=== PATIENT | male | born 1935 | race Caucasian/White ===

== ENCOUNTER 2017-02-12 06:17 | Inpatient (IN) ==
[2017-02-12] MEDS ORDERED: ASPIRIN PO STA (06:22)
[2017-02-12] MEDS ORDERED: ZOFRAN IV ONE (06:46)
[2017-02-12] MEDS ORDERED: CATAPRES ONE (06:46)
[2017-02-12] MEDS ORDERED: CATAPRES PO ONE (06:46)
[2017-02-12] MEDS ORDERED: MORPHINE IV ONE (06:47)
[2017-02-12] MEDS: NITROGLYCERIN SL ONE ×2 (06:50→06:55)
[2017-02-12 06:52] LABS: MANUAL DIFF NEEDED? NO
[2017-02-12 06:56] LABS: BASO% 0.6 % (0.0-0.8); EOS# 0.22 X1000 (0.0-0.7); EOS% 2.7 % (0.0-10.0); HEMATOCRIT 41.7 % (42.0-52.0); HEMOGLOBIN 13.4 g/dL (14.0-18.0); LYMPH# 1.22 X1000 (1.2-3.4); LYMPH% 14.8 % (20.5-51.1); MCH 28.9 PG (27-31); MCHC 32.1 g/dL (33-37); MCV 90.1 FL (81-99); MONO# 0.68 X1000 (0.11-0.59); MONO% 8.2 % (1.7-9.3); MPV 10.3 FL (7.4-10.4); NEUT% 73.7 % (42.2-75.2); PLT 226 X1000 (130-400); RBC 4.63 XMIL (4.7-6.1)
--- NOTE | 2017-02-12 07:06 | PROVIDER DOCUMENTATION ---
HPI-Chest Pain - General Chief Complaint: Chest Pain Stated Complaint: CP Time Seen by Provider: 02/12/17 06:37 Source: patient, family Allergies/Adverse Reactions: Patient Allergies Allergy/AdvReac Type Severity Reaction Status Date / Time Sulfa (Sulfonamide AdvReac Mild NAUSEA Verified 10/07/15 15:53 Antibiotics) [Sulfa(Sulfonamide Antibiotics)] codeine [Codeine] AdvReac NAUSEA Verified 10/07/15 15:53 Home Medications: Home Medication List Medication Instructions Recorded Confirmed Last Taken Type ROSUVAstatin [Crestor] 5 mg PO HS #0 tablet 10/09/15 Unknown Rx Apixaban [Eliquis] 2.5 mg PO DAILY 02/12/17 02/12/17 02/11/17 07:00 History Pantoprazole [Protonix] 40 mg PO DAILY@0700 02/12/17 02/12/17 02/11/17 07:00 History - History of Present Illness-CP Nature of Presenting Problem: Elderly gentleman with a history of CAD (stent placement 1 year ago and pacemaker), presents complaining of substernal chest pain and pressure starting at 1am. He didn't want to wake his son up, but pain got so bad, he had to come according to the patient. He denied any nausea, vomiting, diarrhea, or dyspnea. Location: reports: substernal Chest Pain Radiation: reports: no radiation Quality of Pain: reports: aching, pressure Severity in ED: moderate Onset/Duration: 4-6 hours ago Timing: still present Context/Activities at Onset: reports: light activity Modifying Factors: improves with: immobilization, lying down Associated Symptoms: reports: weakness. denies: diaphoresis, dizziness, fatigue , nausea, shortness of breath, syncope Nitro Today/Relief: provided by ED Aspirin Treatment Today: provided by ED Prior Chest Pain/Cardiac Workup: reports: heart attack Similar Symptoms Previously?: Yes Recently Seen Here or By Another Healthcare Provider: No Review of Systems - Adult - REVIEW OF SYSTEMS - ADULT Constitutional: reports: no symptoms reported Eyes: reports: no symptoms reported Ears, Nose, Mouth & Throat: reports: no symptoms reported Cardiovascular: reports: see HPI, chest pain. denies: orthopnea, palpitations, syncope Respiratory: reports: no symptoms reported Gastrointestinal: reports: no symptoms reported Genitourinary: reports: no symptoms reported Musculoskeletal: reports: no symptoms reported Integumentary: reports: no symptoms reported Neurological: reports: no symptoms reported Psychiatric: reports: no symptoms reported Endocrine: reports: no symptoms reported Hematologic/Lymphatic: reports: no symptoms reported Allergic/Immunologic: reports: no symptoms reported All Other Systems: Reviewed and Negative Past History - Adult - PAST MEDICAL HISTORY-ADULT Review of Records: reports: Old Records Reviewed, Nursing Assessment Review, Medications Reviewed, Social history reviewed & non-contributory. Cardiovascular: reports: HTN, pacemaker Gastrointestinal: reports: GERD, GI bleed - PRIOR SURGERIES/PROCEDURES Surgical/Procedure History: reports: appendectomy, back/neck - IMMUNIZATION STATUS Childhood Immunizations: See Nurse Assessment Flu Vaccine: See Nurse Assessment Physical Exam-General - PHYSICAL EXAM-ADULT Initial Vital Signs Reviewed: Yes - CONSTITUTIONAL General Appearance: appears well - EYES Eyes: PERRL/EOMI, pink conjunctivae - HEAD, EARS, NOSE, MOUTH & THROAT HENMT: normocephalic/atraumatic - NECK Neck: non-tender - RESPIRATORY Respiratory: chest non-tender, lungs clear, normal breath sounds - CARDIOVASCULAR Cardiovascular: normal peripheral pulses, regular rate, rhythm - GASTROINTESTINAL (ABDOMEN) Abdominal Exam: normal bowel sounds, non tender - LYMPHATIC Lymphatic: no adenopathy - MUSCULOSKELETAL Back Exam: normal inspection, no CVA tenderness Extremity: normal range of motion, non-tender - SKIN Integumentary: normal color, normal turgor - NEUROLOGIC Neurologic: research program internship II-XII nml as tested, grossly normal - PSYCHIATRIC Psych/Mental Status: normal mood/affect, normal thought content Progress - PLAN OF CARE/RESULTS Progress/Plan/Lab Results: Vital Signs - 8 hr 02/12/17 06:38 02/12/17 07:38 02/12/17 09:17 Temperature 97.8 F Pulse Rate 72 70 Respiratory Rate 28 H 14 Blood Pressure 225/114 163/93 O2 Sat by Pulse Oximetry 100 97 02/12/17 09:19 Temperature Pulse Rate 70 Respiratory Rate 15 Blood Pressure 171/97 O2 Sat by Pulse Oximetry 98 Laboratory Results - last 24 hr 02/12/17 02/12/17 02/12/17 06:40 06:40 06:40 WBC 8.26 RBC 4.63 L Hgb 13.4 L Hct 41.7 L MCV 90.1 MCH 28.9 MCHC 32.1 L RDW Std Deviation 15.5 H Plt Count 226 MPV 10.3 Immature Gran % (Auto) 0.0 Neut % (Auto) 73.7 Lymph % (Auto) 14.8 L Henry % (Auto) 8.2 Eos % (Auto) 2.7 Baso % (Auto) 0.6 Immature Gran # (Auto) 0.00 Neut # (Auto) 6.09 Lymph # (Auto) 1.22 Henry # (Auto) 0.68 H Eos # (Auto) 0.22 Baso # (Auto) 0.05 PT INR PTT (Actin FS) Sodium 141 Potassium 5.1 Chloride 103 Carbon Dioxide 22 L Anion Gap 16 BUN 26 H Creatinine 2.9 H Estimated GFR/1.73 m2 21 BUN/Creatinine Ratio 9 Glucose 96 Calculated Osmolality 286 Calcium 9.4 Magnesium 2.2 Total Bilirubin 0.73 AST 10 ALT 7 L Alkaline Phosphatase 72 Creatine Kinase 37 Troponin T [id number] Pept 6837 H Total Protein 6.3 Albumin 4.0 Globulin 2.3 Albumin/Globulin Ratio 1.7 02/12/17 02/12/17 02/12/17 06:40 06:40 08:15 WBC RBC Hgb Hct MCV MCH MCHC RDW Std Deviation Plt Count MPV Immature Gran % (Auto) Neut % (Auto) Lymph % (Auto) Henry % (Auto) Eos % (Auto) Baso % (Auto) Immature Gran # (Auto) Neut # (Auto) Lymph # (Auto) Henry # (Auto) Eos # (Auto) Baso # (Auto) PT 10.1 INR 0.96 PTT (Actin FS) 27.1 Sodium Potassium Chloride Carbon Dioxide Anion Gap BUN Creatinine Estimated GFR/1.73 m2 BUN/Creatinine Ratio Glucose Calculated Osmolality Calcium Magnesium Total Bilirubin AST ALT Alkaline Phosphatase Creatine Kinase Troponin T < 0.010 < 0.010 [id number] Pept Total Protein Albumin Globulin Albumin/Globulin Ratio Orders Category Date Time Status Cardiac Monitoring DIRECTED Care 02/12/17 06:22 Active Oxygen Therapy- ED Nursing DIRECTED Care 02/12/17 06:22 Active Saline Loc NOW Care 02/12/17 06:22 Active CHEST-1 VIEW [RAD] Stat Exams 02/12/17 06:22 Completed CBC WITH ELECTRONIC DIFF [HEME] Stat Lab 02/12/17 06:40 Completed CK PROFILE [SP CHEM] Stat Lab 02/12/17 06:40 Completed COMPREHENSIVE METABOLIC PANEL [CHEM] Stat Lab 02/12/17 06:40 Completed MAGNESIUM [CHEM] Stat Lab 02/12/17 06:40 Completed PRO B-NATRIURETIC PEPTIDE Stat Lab 02/12/17 06:40 Completed PROTIME WITH INR [COAG] Stat Lab 02/12/17 06:40 Completed PTT [COAG] Stat Lab 02/12/17 06:40 Completed TROPONIN T Stat Lab 02/12/17 06:40 Completed TROPONIN T Stat Lab 02/12/17 08:15 Completed Aspirin Med 02/12/17 06:22 Discontinued 325 mg PO STAT STA Clonidine [Catapres] Med 02/12/17 06:46 Discontinued 0.1 mg .ROUTE .STK-MED ONE Clonidine [Catapres] Med 02/12/17 06:46 Discontinued 0.1 mg PO NOW ONE Furosemide [Lasix] Med 02/12/17 07:54 Discontinued 60 mg IV NOW ONE Lido/Villalobos Alk/Al&mg Hydrox [G.i. Cocktail] Med 02/12/17 08:00 Discontinued 30 ml PO NOW ONE Morphine Med 02/12/17 06:47 Discontinued 4 mg IV NOW ONE Nitroglycerin Sl [Nitroglycerin] Med 02/12/17 06:47 Discontinued 0.4 mg SL NOW ONE Ondansetron [Zofran] Med 02/12/17 06:46 Discontinued 4 mg IV NOW ONE EKG [EKG] Stat Ther 02/12/17 06:22 Draft Result Diagrams: 02/12/17 06:40 02/12/17 06:40 Departure - Departure Date of Disposition Decision: 02/12/17 Time of Disposition Decision: 09:34 DIAGNOSIS: Congestive heart failure (CHF), Chest pain, Uncontrolled hypertension Disposition: ADMITTED INPATIENT 09 Certified Medical Emergency: Emergent Condition: Critical Referrals and Follow-Ups: Iman Durán [Primary Care Provider] - - Critical Care Note This patient required my direct & personal management of CC.: Yes Total Time (mins): 60 Critical Care Statement: This patient required my direct personal management to treat or rule out processes, the absence of which, could potentiallly result in sudden, clinically significant life or limb threatening deterioration. Attestation - Physician/ ROSAMARIA Attestation The physician spent face to face time with patient:: Yes Advanced Practice Provider documentation review:: Supervising physician onsite and consulted in the evaluation and care of this patient. The physician did have a face to face encounter with the patient.
--- NOTE | 2017-02-12 07:08 | Diag Imaging Result Doc PS360 ---
EXAM: CHEST-1 VIEW HISTORY: CP TECHNIQUE: Portable upright COMPARISON: 10/07/2015 FINDINGS: There is a left-sided pacemaker. The lungs are well expanded. Heart is not enlarged. There are bilateral calcified pleural plaques with calcified right hilar lymph nodes. There is a small amount of right pleural thickening. The overall appearance is quite similar to that of the prior exam considering the differences in technique. IMPRESSION: Stable chest. Electronically signed by Asad Crawley 02/12/2017 7:06 AM
[2017-02-12 07:15] LABS: CALCIUM 9.4 mg/dL (8.8-10.2); MAGNESIUM 2.2 mg/dL (1.5-2.7); POTASSIUM 5.1 mmol/L (3.5-5.1); TOTAL BILIRUBIN 0.73 mg/dL (0.20-1.00); TOTAL PROTEIN 6.3 g/dL (6.3-8.3)
[2017-02-12 07:39] LABS: INR 0.96; PROTIME 10.1 Seconds (9.2-11.7); PTT 27.1 Seconds (22.0-36.0)
--- NOTE | 2017-02-12 07:43 | EKG Report ---
Test Performed on : 02/12/2017 06:17:49 AM Test Reason : Chest Pain Blood Pressure : / mmHG Vent. Rate : 072 BPM Atrial Rate : 072 BPM P-R Int : 000 ms QRS Dur : 172 ms QT Int : 466 ms P-R-T Axes : 000 -69 097 degrees QTc Int : 510 ms Ventricular-paced rhythm Abnormal ECG When compared with ECG of 08-OCT-2015 06:50, No significant change was found Unconfirmed Result
[2017-02-12] MEDS ORDERED: LASIX IV ONE (07:54)
[2017-02-12] MEDS ORDERED: G.I. COCKTAIL PO ONE (08:00)
--- NOTE | 2017-02-12 09:24 | ED EKG INTERP ---
This chart was entered by Ashley Finley Scribe, acting as scribe for Marito Nieto MD. EKG Interpretation - EKG Time of EKG reading by physician:: 06:17 EKG Read and Signed by:: Marito Nieto EKG Interpretation (*Must complete 3 of following elements*): Abnormal Rate: 72 Rhythm: ventricular paced rhythm [place]: normal (paced) QRS: normal (paced) MD Interval: normal (paced) ST Wave: normal (paced) Comments: ventricular paced Attestation - Physician/ ROSAMARIA Attestation The physician spent face to face time with patient:: Yes Advanced Practice Provider documentation review:: Supervising physician onsite and consulted in the evaluation and care of this patient. The physician did have a face to face encounter with the patient. This chart was documented by the indicated scribe, (Ashley Finley Scribe) and accurately reflects the services I performed and decisions made by Emilia huerta Christophe I, MD, as attested by the provider's signature.
--- NOTE | 2017-02-12 12:24 | HISTORY AND PHYSICAL ---
PRIMARY CARE PROVIDER: Iman Durán MD. PRIMARY SUPERVISOR DATA PROCESSING: Keagan Calderon MD. CHIEF COMPLAINT: Chest pain. HISTORY OF PRESENT ILLNESS: Mr. Jesse Rivera is an 82-year-old male. He is in no acute distress. He is able to answer questions appropriately. He has a medical history of sick sinus syndrome, atrial fibrillation, now with a permanent pacemaker, on Eliquis therapy, valvular dysfunction and requirement of a valve replacement, CVA 1-1/2 years ago , CKD stage 3, with a baseline anywhere from 2 to 2.9, left eye blindness, history of syncope, history of falls secondary to balance loss, who now presents with complaints of chest pain. He states that around 1 a.m., he was awoken by severe chest pain that was substernal, that radiated down to his left elbow. He had nausea with it, but no sweating. He did have some mild dizziness. He states that the chest pain lasted long enough that he requested his son to bring him to the ER. Currently, he is chest pain free, but he did receive clonidine, Lasix, morphine, aspirin, nitroglycerin, and a GI cocktail. He states that about 2 days a week, he has chest pain when he starts to lay down to go to bed. That pain at that time is anywhere from 4/10 to 5/10. He gets nauseated about once a week. He does have shortness of breath if he walks about 100 feet, and with other certain activities. Upon presentation, he did have a blood pressure of 225/114. His first 2 sets of cardiac enzymes were negative. His proBNP was elevated at 6837. He states that he does not take anything for his blood pressure. It normally does not run very high. He does have pulmonary hypertension, with a systolic PA pressure of 71, that was on an echocardiogram report from last year. He states that only once before did he had a blood pressure that was 200s /100s, and he states that was around 5 years ago. His kidney function appears to be at baseline. Will transfer to the medical floor, continue with antihypertensive consult, Cardiology, for further workup. He had seen Dr. Calderon approximately 1 week ago, and he was sent to [facility] about 2-3 days ago to have his pacemaker interrogated. Apparently, his battery has about a 6-month life span left on it. PAST MEDICAL HISTORY: 1. Sick sinus syndrome, atrial fibrillation, status post pacemaker, status post ablation. 2. Hypothyroidism. 3. Chronic kidney disease, stage 3, baseline of 2 to 2.9. 4. Hypertension. 5. CVA 1-1/2 years ago. 6. Valvular disorder. 7. Left eye blindness. 8. History of syncope. 9. History of falls due to balance loss. PAST SURGICAL HISTORY: Permanent pacemaker placement, atrial ablation, appendectomy, and 6 back surgeries. His last left heart catheterization, according to the patient, was around 8 years ago. SOCIAL HISTORY: He quit smoking in 2012. Prior to that, he smoked 1-2 packs per day for 40 years. He quit drinking alcohol 1-2 years ago, but prior to that, only drank about 1 beer a week. Denies illicit drug use. Lives at home with his son. Uses a walker for ambulation. His last fall just happened to be about 2-3 days ago, that is just to state that he fell onto the couch. ALLERGIES: Sulfa and codeine. HOME MEDICATIONS: Eliquis 2.5 mg p.o. daily, Protonix 40 mg p.o. daily, Zofran 4 mg p.r.n. REVIEW OF SYSTEMS: Fourteen-point review of systems were complete, and all were negative, except for those mentioned above in HPI. PHYSICAL EXAMINATION: VITAL SIGNS: Temperature 97.8 degrees, heart rate 70, respiratory rate 15, blood pressure 171/97, O2 saturation 98% on room air. 5 feet 11 inches tall, 150 pounds, BMI 20.9. He does state that he has had a 30-pound weight loss in 1 year. GENERAL: Mr. Jesse Rivera is an 82-year-old male. He is in no acute distress. He is able to answer questions appropriately. HEENT: Atraumatic, normocephalic. Pupils equal and reactive. Extraocular movements intact. He is blind out of his left eye though. Mucous membranes are dry. NECK: No JVD or carotid bruits noted. CARDIOVASCULAR: S1, S2. Regular rate and rhythm. Permanent pacemaker in the left chest. There is a pronounced murmur on the right side of his chest noted. No rubs or gallops. PULMONARY: Clear to auscultate bilateral breath sounds. No accessory muscle use or work of breathing noted. GASTROINTESTINAL: Soft, nontender, nondistended. Positive bowel sounds x4. EXTREMITIES: No edema noted. +2 dorsalis and radial pulses. NEUROLOGIC: Alert and oriented x4. Moves all extremities equally. SKIN: Warm, dry, intact. LABORATORY DATA: White blood cells 8000, hemoglobin 13, hematocrit 41, platelet count 226,000. INR 0.96. PTT is 27.1. Sodium 141, potassium 5.1, BUN 26, creatinine 2.9, glucose 96, calcium 9.4, magnesium 2.2. Bilirubin 0.73, AST 10, ALT 7. CK 37. Troponin less than 0.01. ProBNP 6837. IMAGING DATA: Chest x-ray: Stable chest. Left pacemaker noted. Lungs are well-expanded. Heart is not enlarged. There are bilateral calcified pleural plaques, with calcified right hilar lymph node. There is a small amount of right pleural thickening, but is overall similar to the prior exam. ELECTROCARDIOGRAM: Ventricularly-paced rhythm at 72. ASSESSMENT AND PLAN: 1. Chest pain. Rule out acute coronary syndrome. He does have a paced rhythm. Two sets of cardiac enzymes are negative, although he did present with a very high blood pressure. He did have radiation down to the left elbow. Will consult Cardiology for further recommendations. 2. Volume overload with CHF exacerbation. Monitor daily weights. Diuretic therapy. 3. Hypertensive urgency. He was admitted with a 225/114. Received clonidine, nitroglycerin, which brought his blood pressure back down to a systolic of 160s to 170s, and now chest pain free. He did receive a GI cocktail also. 4. Mild aortic stenosis, moderate tricuspid regurgitation, with a significant murmur. Apparently, per the family, he is needing a valve replacement. 5. Gastroesophageal reflux disease. Continue Protonix. 6. Chronic nausea. Continue p.r.n. Zofran. 7. History of atrial fibrillation, sick sinus syndrome, with a permanent pacemaker. Just recently was interrogated. Apparently, there is only a six-month life span left on it. We will continue home Eliquis. 8. History of hypothyroidism. Apparently, he has not been taking any medications for this at home. We will repeat TSH and T4 while here. 9. Chronic kidney disease, stage 3. Appears stable. He is anywhere from 2 to 2.9 on his creatinine. He presents with a 2.9 this admission. We will monitor, as he did receive Lasix. 10. Recurrent syncope, also has falls. Will put on fall precautions and monitor closely. 11. Deep venous thrombosis prophylaxis. He is on Eliquis. Dictated by BOBY Ambriz for Nano Camejo MD cc: BOBY Ambriz MD Faye Wilson, MD William D. Denney, MD I have personally performed a face to face diagnostic evaluation on this patient. I have reviewed and agree with the assessment and plan. The patient will be admitted to the hospital on telemetry and ruled out for myocardial infarction. Cardiology will be consulted for further recommendations. YUSEF
[2017-02-12 12:29] LABS: FREE T4 1.47 ng/dL (0.93-1.70)
[2017-02-12] MEDS ORDERED: NITROGLYCERIN SL PRN ×2 (12:48→20:45)
[2017-02-12] MEDS ORDERED: TYLENOL PO PRN ×2 (12:48→20:45)
[2017-02-12] MEDS ORDERED: ZOFRAN IV PRN ×2 (12:48→20:45)
[2017-02-12] MEDS: NITROGLYCERIN TOP SCH ×2 (13:20→23:09)
[2017-02-12] MEDS ORDERED: SODIUM BICARBONATE 8.4% 150 MEQ in D5W 1,000 ML IV SCH (13:57)
[2017-02-12 14:27] LABS: URINE MICRO REVIEW NEEDED? NO; URINE SOURCE VOIDED
[2017-02-12 14:33] LABS: BILIRUBIN URINE NEGATIVE (NEGATIVE); BLOOD URINE NEGATIVE (NEGATIVE); COLOR STRAW; GLUCOSE URINE NEGATIVE (NEGATIVE); LEUKOCYTES URINE NEGATIVE (NEGATIVE); NITRITE URINE NEGATIVE (NEGATIVE); PH URINE 6.5; PROTEIN URINE NEGATIVE (NEGATIVE); SP GRAVITY URINE 1.004; TURBIDITY URINE CLEAR (CLEAR); UROBILINOGEN URINE NORMAL (NORMAL)
[2017-02-12 14:34] LABS: UR EPITHELIAL CELLS <10 /HPF (<10); URINE BACTERIA NEGATIVE /HPF; URINE RBC <10 /HPF (<10); URINE WBC <10 /HPF (<10)
[2017-02-12 14:44] LABS: UR CREAT RANDOM 14.4 mg/dL (14-26); UR PROT RANDOM < 4.0 mg/dL; UR SODIUM 131 mmoll
--- NOTE | 2017-02-12 15:01 | CONSULTATION ---
DATE OF CONSULTATION: 02/12/2017 REASON FOR CONSULTATION: Chest pain. HISTORY: Mr. Rivera is a pleasant 82-year-old male who is normally followed by Dr. Cassidy Hooper, lately Dr. Keagan Calderon. The patient presented to the hospital because of symptoms of chest discomfort, substernal, very intense, similar to previous episodes of angina, that happened early in the morning hours about 1 or 2 o'clock in the morning. They lasted for about 3 hours before he notified his son that he was having chest pain. He was brought to the emergency room somewhere around 6 o'clock. At that time, they did an electrocardiogram that shows underlying atrial fibrillation with a ventricular pacemaker rhythm and diffuse repolarization abnormality. They have done several troponin levels, a total of 2 at 6 a.m. and 8:15, they are negative. A pro-BNP was checked it was 6837. CK was elevated at 228. A chest x-ray shows evidence of pacemaker with some perihilar fuzziness, congestion, he has some scarring in the lung. He has been given nitroglycerin and the pain has almost subsided completely. He is feeling more comfortable right now. PAST MEDICAL HISTORY: Significant for coronary artery disease, back in 2010 he underwent heart cath that showed severe stenosis of the distal right coronary artery, at that time he was advised to pursue medical therapy. He has had a previous stroke. He has chronic kidney disease stage III. His creatinine is 2.9 today. He has had atrial fibrillation and a previous implantation of pacemaker. He has been found to have aortic stenosis and lately on a recent echo, the stenosis appears to have worsened, and he is almost falling into the severe range. PAST SURGICAL HISTORY: He has had appendectomy. He has had ablation of atrial fibrillation. SOCIAL HISTORY: He quit smoking after smoking for 40 years. 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 He is a . He has a son that lives with him. He does not drink alcohol. ALLERGIES: Sulfa and codeine. HOME MEDICATIONS: At the time of this visit included: Eliquis 2.5 twice daily , Crestor, and Protonix. REVIEW OF SYSTEMS: He has become progressively more debilitated, weaker, tendency to fall, near syncopal. No recent bouts of chest pain noted other than the one that brought him to the hospital. PHYSICAL EXAMINATION: VITAL SIGNS: Blood pressure 158/91. Temperature 97.1. Pulse 71. Respirations 18. GENERAL: He is awake, alert, oriented, and in no distress. HEENT: No JVD. He does have some cervical bruit. CHEST: Shows diminished breath sounds diffusely. HEART: Sounds are regular, rhythmic. He does have a systolic murmur over the aortic area 2/6 intensity. ABDOMEN: Soft and nontender. No masses or hepatomegaly. EXTREMITIES: Show diminished pulses. No edema. NEUROLOGIC: Follows commands. Moves all 4 extremities. LABORATORY: Blood work: Sodium 141, potassium 5.1, BUN 26, creatinine 2.9. White count 8260, hemoglobin 17.4, hematocrit 41.7. IMPRESSION: 1. Patient presented with chest pain, possible angina pectoris unstable. 2. Chronic kidney disease stage III. 3. Atrial fibrillation, chronic, status post VVI pacemaker implantation. 4. History of syncope in the past. 5. History of severe coronary heart disease. 6. Possibly significant aortic stenosis. RECOMMENDATION: At this point in time, given his presentation with significant chest pain at rest, I would advise to pursue right and left heart catheterization. Benefits, risks, complications explained to him in detail. Because of his renal insufficiency I will treat him with IV bicarbonate and Mucomyst. Then we will pursue further management after the results of the heart catheterization are made available. We will follow him along with you. Thank you for the opportunity to participate in his care. cc: Maycol Oliver MD [facility]
[2017-02-12] MEDS ORDERED: MORPHINE IV PRN (16:09)
--- NOTE | 2017-02-12 16:12 | EKG Report ---
Test Performed on : 02/12/2017 1:44:29 PM Test Reason : chest pain Blood Pressure : / mmHG Vent. Rate : 073 BPM Atrial Rate : 046 BPM P-R Int : 000 ms QRS Dur : 172 ms QT Int : 482 ms P-R-T Axes : 000 -77 088 degrees QTc Int : 531 ms Ventricular-paced rhythm with occasional premature ventricular complexes. Abnormal ECG When compared with ECG of 12-FEB-2017 06:17, (Unconfirmed) premature ventricular complexes. are now present Confirmed by Jayjay Kwon DO ([id number]) on 02/15/2017 8:36:16 AM
[2017-02-12 18:22] LABS: ALBUMIN 4.5 g/dL (3.5-5.0); CALCIUM 9.4 mg/dL (8.8-10.2)
[2017-02-12] MEDS ORDERED: XANAX PO PRN (20:45)
[2017-02-12] MEDS ORDERED: MILK OF MAGNESIA PO PRN (20:45)
[2017-02-12] MEDS ORDERED: CEPACOL SORE THROAT LOZENGE MT PRN (20:45)
[2017-02-12] MEDS ORDERED: MAGNESIUM SULFATE 2 GM in STERILE WATER INJ. 50 ML IV PRN ×4 (20:45)
[2017-02-12] MEDS ORDERED: KLOR-CON PO PRN ×3 (20:45)
[2017-02-12] MEDS ORDERED: DULCOLAX PR PRN (20:45)
[2017-02-12] MEDS ORDERED: MAGNESIUM SULFATE 3 GM in NS 100 ML IV PRN (20:45)
[2017-02-12] MEDS: MUCOMYST 20% PO SCH ×2 (21:04→23:07)
[2017-02-12] MEDS: CATAPRES PO SCH (23:07)
[2017-02-12] MEDS: PERCOCET-5 PO PRN (23:07)
[2017-02-12] MEDS: LIPITOR PO SCH (23:09)
[2017-02-13] MEDS: PERCOCET-5 PO PRN (04:42)
[2017-02-13] MEDS: NITROGLYCERIN TOP SCH ×4 (06:02→21:32)
[2017-02-13 06:56] LABS: HEMATOCRIT 43.8 % (42.0-52.0); MCH 29.5 PG (27-31); MCV 92.4 FL (81-99); RBC 4.74 XMIL (4.7-6.1)
[2017-02-13 07:04] LABS: INR 0.98; PROTIME 10.3 Seconds (9.2-11.7); PTT 27.8 Seconds (22.0-36.0)
[2017-02-13 07:24] LABS: ALBUMIN 4.3 g/dL (3.5-5.0); CALCIUM 8.8 mg/dL (8.8-10.2); POTASSIUM 4.5 mmol/L (3.5-5.1)
--- NOTE | 2017-02-13 07:38 | EKG Report ---
Test Performed on : 02/13/2017 06:08:27 AM Test Reason : cp Blood Pressure : / mmHG Vent. Rate : 070 BPM Atrial Rate : 066 BPM P-R Int : 000 ms QRS Dur : 168 ms QT Int : 494 ms P-R-T Axes : 000 -80 082 degrees QTc Int : 533 ms Ventricular-paced rhythm Abnormal ECG When compared with ECG of 12-FEB-2017 13:44, (Unconfirmed) premature ventricular complexes. are no longer present Vent. rate has decreased BY 3 BPM Confirmed by Jayjay Kwon DO ([id number]) on 02/15/2017 12:40:42 PM
[2017-02-13] MEDS ORDERED: ELIQUIS PO SCH (09:00)
[2017-02-13] MEDS ORDERED: HEPARIN 1000 UNITS/NS 2,000 UNIT/1,000 ML IV.SOLN ONE (10:58)
[2017-02-13] MEDS ORDERED: NS 100 ML ONE (11:46)
[2017-02-13] MEDS ORDERED: VERSED ONE (11:54)
[2017-02-13] MEDS ORDERED: CLAVE PUMP SET NO FILTER 12260 ONE (11:55)
[2017-02-13] MEDS ORDERED: NS 1,000 ML ONE (11:55)
[2017-02-13] MEDS ORDERED: CLAVE TWINSITE 32 IN 11959 ONE (11:55)
[2017-02-13] MEDS ORDERED: DEMEROL ONE (11:55)
--- NOTE | 2017-02-13 12:34 | CONSULTATION ---
DATE OF CONSULTATION: 02/13/2017 REASON FOR CONSULTATION: Chronic kidney disease and left heart catheterization required. HISTORY OF PRESENT ILLNESS: Mr. Rivera is an 82-year-old, white male who has a baseline creatinine in the 2s. He has ranged from 1.9 to 2.9 up until September of this year. He was referred to my office just recently and had scheduled appointment but has not made it there yet. He states he was in his normal health until the day of admission when he had chest tightness with shortness of breath and diaphoresis. He stated "I had a heart attack". He has had heart disease in the past and is well aware of what that feels like. Because of these symptoms, he came to the emergency room and was admitted to the hospital. His laboratory data disclosed markedly abnormal troponin at 0.372 and he is therefore diagnosed clinically with an CT and has been evaluated by Cardiology. They planned left and right heart catheterization today. He was treated with IV bicarbonate as well as Mucomyst in anticipation of this procedure. He has also received IV potassium supplementation since he has been here. He was not previously aware of kidney disease. He does not have voiding symptoms just "slow". No difficulty with initiating his stream. No dribbling etc. Currently he feels well. No chest pain, palpitations, or shortness of breath. No nausea, vomiting, headaches, vision changes, chills, fever, sweats, night sweats, cough or sputum etc. PAST MEDICAL HISTORY: 1. Coronary artery disease. 2. Chronic kidney disease. 3. History of sick sinus syndrome and atrial fibrillation. 4. Hypertension. 5. Hyperlipidemia. HOME MEDICATIONS: Include rosuvastatin, pantoprazole, and apixaban. ALLERGIES: Sulfa and codeine. SOCIAL HISTORY: Former smoker. None in 5+ years. He lives at home and his son lives with him. FAMILY HISTORY: Noncontributory. REVIEW OF SYSTEMS: Otherwise noncontributory. PHYSICAL EXAMINATION: Generally: He is an elderly man thin in no distress. Skin: Warm and dry. Conjunctivae are pink. Pupils are equal. Neck: Neck veins are not appreciated. Trachea is midline. Heart: Regular without murmurs, gallops or rubs. Lungs: Equal breath sounds. No dullness, crackles, wheezes, accessory muscle use or retractions. Abdomen: Soft, nontender. Bowel sounds present. Extremities: No edema or clubbing. The toes are a little dark and dusky. Fairly uniform however. IMPRESSION: Chronic kidney disease. Baseline creatinine appears to be around 2-1/2. His creatinine has risen progressively since admission from 2.9-3.5 despite receiving IV fluids. Renal ultrasound has not been performed yet. His urinalysis has no blood or protein. Likely, he has ischemic nephropathy from hypertension and vascular disease stage IV. Given his cardiac status, I support her decision to proceed with left heart catheterization despite the risk. I have counseled him regarding the risk related to IV contrast and the steps that are her being taken to mitigate it. He understands that mitigation is never complete, and he is at risk for acute kidney injury that could be permanent and may require dialysis. We will follow expectantly. cc: Cody Mcfadden MD
[2017-02-13] MEDS ORDERED: MAALOX PLUS LIQUID PO PRN (13:45)
[2017-02-13] MEDS: CATAPRES PO SCH ×2 (13:52→21:35)
[2017-02-13] MEDS: PROTONIX PO SCH (13:58)
--- NOTE | 2017-02-13 14:05 | CARDIAC CATH REPORT ---
DATE: 02/13/2017 REFERRING PHYSICIAN: Hospitalist Service PROCEDURES PERFORMED: 1. Right heart catheterization. 2. Left heart catheterization. 3. Selective coronary angiogram. 4. Left ventriculogram. 5. Opacification of right femoral artery with deployment of 6-Slovak Angio-Seal device. HISTORY: This is an 82-year-old male who has been known to have some degree of aortic stenosis, presenting with severe chest pain. His presentation was very consistent with an unstable angina pectoris. We recommended to pursue right and left heart catheterization for further evaluation of his condition. The benefits, risks and complications were explained to him in detail. He understood and requested to proceed. DESCRIPTION OF PROCEDURE: The patient came into the cardiac director of labor and delivery in the fasting state. Right groin was prepped and draped in sterile fashion and anesthetized with lidocaine 1%. A 6-Slovak sheath was inserted into the right femoral vein by following the modified Seldinger technique. Thereafter, a 6-Slovak sheath was inserted in the right femoral artery by following the modified Seldinger technique. Right heart catheterization was done using a [place] catheter. Pressure was measured at the right atrium and right ventricle, pulmonary artery wedge. Samples of blood were drawn from the femoral artery and also from the pulmonary artery to calculate a cardiac output by the Abad method. The pressures were obtained one more time from pullback from the pulmonary artery to right ventricle and right atrium. Then a left heart catheterization was performed using a 6-Slovak 8.2 multipurpose catheter. The central aortic pressure was measured. Then aortic valve was negotiated with a straight tipped guidewire. The pressure was measured at the level of the left ventricle. Left ventriculogram was performed in the 60 degree NAURUAN projection by hand injection. Then the catheter was pulled back from left ventricle into central aorta. A mean gradient of 14 mmHg was documented. Then the left coronary artery was opacified in multiple projections. Thereafter, the right coronary artery was opacified using a right Santosh catheter, 6-Slovak 4. At the end of the procedure, all of the catheters were removed, the sheath was flushed. The right femoral artery was opacified, and then Angio-Seal device was deployed successfully. The patient tolerated the procedure well without any obvious complications. SUMMARY OF HEMODYNAMIC FINDINGS: Central aortic pressure is 92/63, left ventricular pressure 105/2. The mean gradient across the aortic valve was estimated at 14 mmHg twice with different catheters. The right atrial pressure was 2. The right ventricular pressure was 24.1. Pulmonary pressure was 26.9, the wedge was 9 mmHg. The cardiac output by the Abad method was 2.5 L per minute. In summary, these hemodynamic indicate that the patient has a very trivial gradient across the aortic valve. This is not a case of severe aortic stenosis. SUMMARY OF ANGIOGRAPHIC FINDINGS: 1. Left coronary artery: The left coronary artery shows an ostial plaque of about 25%. The left main divides into LAD and circumflex. The left anterior descending coronary artery divides and gives rise to a major diagonal branch that has a proximal plaque of about 70%. The distal diagonal is suitable for bypass grafting. The LAD proper shows mild plaque of 30%. After the origin of a large septal branch, there is a discrete segment of stenosis about 65% in the mid LAD. The apical LAD maintains a caliber of at least 1.8 to 2 mm. It is suitable for bypass grafting. 2. Circumflex coronary artery: The circumflex coronary artery is a nondominant vessel. It shows mild proximal disease. The left circumflex essentially divides into 3 branches, one is a lateral branch which has a caliber of at least 2 mm. This vessel shows a stenosis of about 75% to 80%. There is another marginal branch that comes off of the circumflex that has subtotal occlusion in its terminal subdivision. That vessel is not suitable for any intervention. The circumflex gives rise to a sinus fabrice branch which is a large vessel. 3. Right coronary artery: The right coronary artery is a large dominant vessel with an ostial stenosis of 90%. The right coronary artery gives rise to a right atrial branch. It shows diffuse disease in the distal third that is 60% to 70% plaque, and then this is followed by an additional plaque of about 50% close to the crux of the heart. The right coronary artery gives rise to a posterolateral branch which is good size, at least 2 mm, suitable for bypass, and a posterior descending branch which is also a good size vessel, probably suitable for bypass grafting. LEFT VENTRICULOGRAM: Left ventriculogram in the 60 degree NAURUAN projection showed enlargement of the left ventricular chamber with mild global systolic impairment. Ejection fraction is probably in the order of 45% to 50%. FLUOROSCOPY: Fluoroscopy reveals the presence of pacemaker leads in the right atrium, right ventricle, the pacemaker generator and dense calcification of the aortic valve and also the coronary vessels. OPACIFICATION OF RIGHT FEMORAL ARTERY: The right femoral artery shows mild diffuse disease. Angio-Seal device was deployed successfully. CONCLUSIONS: 1. Mild degree of aortic stenosis. Mean gradient is 14 mmHg. This was checked twice with different catheters. 2. Low cardiac output state. Cardiac output is 2.56 with an index of 1.5. 3. Severe 3-vessel coronary artery disease with severe stenosis of major diagonal branch of LAD, moderate to significant stenosis of LAD proper in its mid section, severe ostial stenosis of the right coronary artery with a number of lesions in the mid to distal portion of the vessel. There is also a severe stenosis of marginal branch of circumflex with complete occlusion of a terminal marginal branch. 4. Mildly decreased ejection fraction. 5. Normal LVEDP. Low wedge. 6. Mild diffuse disease of the femoral artery. RECOMMENDATIONS: The patient is advised to pursue aggressive medical therapy, and we will obtain second opinion regarding the feasibility of performing coronary bypass surgery on this patient. He really had good targets. The only problem may be his general poor functional state. Further advice will be forthcoming. cc: Maycol Oliver MD
[2017-02-13] MEDS: MUCOMYST 20% PO SCH ×2 (14:07→21:32)
[2017-02-13] MEDS: ASPIRIN EC PO SCH (14:07)
--- NOTE | 2017-02-13 16:31 | Diag Imaging Result Doc PS360 ---
EXAM: US RENAL 2 (RETROPER) COMPLETE INDICATION: chico/arf TECHNIQUE: COMPARISON: 10/11/2010 FINDINGS: The renal cortical echotexture is mildly increased bilaterally, which is a nonspecific indicator of medical renal disease. No discrete renal mass or hydronephrosis is identified. The right kidney measures 8.8 cm in the left kidney measures 8.3 cm in the greatest longitudinal axes. Right renal cortex measures up to 0.9 cm and the left renal cortex measures up to 0.8 cm in thickness. The urinary bladder is grossly unremarkable. IMPRESSION: Mildly increased renal cortical echotexture, which is a nonspecific indicator of medical renal disease. Electronically signed by Jayesh Goff 02/13/2017 4:29 PM
[2017-02-13] MEDS ORDERED: SODIUM BICARBONATE 8.4% 150 MEQ in D5W 1,000 ML IV SCH (20:00)
[2017-02-13] MEDS: LIPITOR PO SCH (21:35)
[2017-02-13] MEDS: RESTORIL PO PRN (21:35)
[2017-02-14] MEDS: NITROGLYCERIN TOP SCH ×5 (00:07→20:56)
[2017-02-14 05:47] LABS: ALBUMIN 3.2 g/dL (3.5-5.0); POTASSIUM 4.6 mmol/L (3.5-5.1)
[2017-02-14] MEDS: PROTONIX PO SCH (06:34)
--- NOTE | 2017-02-14 08:46 | PROGRESS NOTE ---
DATE: 02/14/2017 SUBJECTIVE: He was sleeping and breathing comfortably. OBJECTIVE: Vital signs: Temperature 97.8 degrees and he has remained afebrile. Pulse 70, respirations 18, blood pressure 119/73. Lungs: Clear in all lung mayer. Cardiovascular exam: Regular rhythm and rate without murmur or S3. Abdomen: Soft. Skin: Warm and dry. : Urine output 1500 mL. LAB: Lab reviewed from yesterday: Hematocrit stable at 43. Chemistries from this morning: Sodium 137, potassium 4.6, chloride 95, BUN 39, creatinine 3.5. He had a rise in his troponin 0.372. ASSESSMENT AND PLAN: Dr. Mcfadden is following with chronic kidney disease. Baseline creatinine appears to be about 2.5 and this has risen this admission. He is receiving intravenous fluids. Renal ultrasound was ordered and performed yesterday. Mildly increased renal cortical echotexture which is nonspecific indicator of medical renal disease. Heart catheterization done by Dr. Oliver yesterday. Hemodynamic showed very trivial gradient across the aortic valve, so not a case of severe aortic stenosis. Some mild degree of aortic stenosis. Mean gradient was 14 mmHg. A low cardiac output state. Cardiac output was 2.56 with an index of 1.5. Severe 3-vessel coronary artery disease with severe stenosis of major diagonal branch of left anterior descending, moderate to significant stenosis of the left anterior descending proper at its midsection, severe ostial stenosis of the right coronary artery, and a number of lesions in the mid and distal portion of the vessel. There is also severe stenosis in the marginal branch of the circumflex, complete occlusion of the terminal marginal branch. He had a normal left ventricular end- diastolic pressure and mild diffuse disease of the femoral artery was noted. So, they are going to pursue aggressive medical therapy. Dr. Oliver is going to obtain a second opinion about performing coronary bypass surgery on this patient. Review orders. I do not see any change at this point. cc: Sedrick Franco MD
[2017-02-14] MEDS: ASPIRIN EC PO SCH (09:15)
[2017-02-14] MEDS: MUCOMYST 20% PO SCH ×2 (09:15→20:56)
[2017-02-14] MEDS: CATAPRES PO SCH ×2 (09:15→20:57)
--- NOTE | 2017-02-14 11:22 | PROGRESS NOTE ---
DATE: 02/14/2017 SUBJECTIVE: Mr. Rivera, as best I can tell, has not had any chest pain overnight. The patient is an extremely poor historian, muttering unintelligible sounds most of the time. PHYSICAL EXAMINATION: He is afebrile. Heart rate is 72. Blood pressure 119/73. General: In no acute distress. Cardiovascular: He is in a regular rate and rhythm. He has no murmurs. No S3. He has no lower extremity edema. His right groin catheterization site has no hematoma and no bruit present. Chest exam is clear bilaterally. No increased work of breathing. Abdomen is soft, nontender. PERTINENT DATA: Sodium 137, potassium 4.6. BUN 39, creatinine 3.5 which is stable from yesterday. ASSESSMENT: Non ST-elevation myocardial infarction. PLAN: The patient will continue with medical therapy. There are some questions regarding ongoing evaluation for revascularization, possibly a surgical consultation. I will defer that to Dr. Oliver. His renal function appears to have maintained stability despite the cath. cc: William Kwon MD
[2017-02-14] MEDS: RESTORIL PO PRN (20:56)
[2017-02-14] MEDS: LIPITOR PO SCH (20:56)
[2017-02-15] MEDS: NITROGLYCERIN TOP SCH ×4 (03:54→20:24)
[2017-02-15] MEDS: PROTONIX PO SCH ×2 (05:45→06:08)
[2017-02-15 06:06] LABS: ALBUMIN 3.5 g/dL (3.5-5.0); CALCIUM 8.3 mg/dL (8.8-10.2)
--- NOTE | 2017-02-15 09:12 | PROGRESS NOTE ---
DATE: 02/15/2017 SUBJECTIVE: Mr. Rivera says he is feeling a lot better. He was sleeping and easy to arouse, breathing comfortably. No chest pain. OBJECTIVE: Vital Signs: Temperature 97.8 degrees, pulse 72, respirations 16, blood pressure 97/62. Lungs: Clear in all lung mayer. Cardiovascular: Regular rhythm and rate, without murmur or S3. Abdomen: Soft. Skin: Warm and dry. LABORATORY STUDIES: Urine output is 1600 mL. Reviewed labs. Sodium 135, potassium 5.0, chloride 94, BUN 42, creatinine 3.8, which is right around where he has remained stable here. ASSESSMENT AND PLAN: 1. Non ST-elevation myocardial infarction, three-vessel disease. Continue to treat medically. I think Cardiology is discussing whether he would even be a potential candidate to consider bypass surgery, but appears to be improving. 2. Chronic kidney disease. Serum creatinine seems to be at 3.8, so it would make him a stage IIIB. 3. Blood sugars still running a little high, so we may make some adjustments in his sugar control. We will see if the numbers fall. May consider putting him on some Lantus, or even split dose insulin. Electrolytes look good. cc: Sedrick Franco MD
[2017-02-15] MEDS: MUCOMYST 20% PO SCH ×2 (10:03→20:23)
[2017-02-15] MEDS: ASPIRIN EC PO SCH (10:04)
[2017-02-15] MEDS: CATAPRES PO SCH ×2 (10:04→20:24)
[2017-02-15] MEDS: LIPITOR PO SCH (20:24)
[2017-02-16] MEDS: NITROGLYCERIN TOP SCH (04:03)
[2017-02-16 05:44] LABS: ALBUMIN 3.2 g/dL (3.5-5.0); CALCIUM 8.6 mg/dL (8.8-10.2); POTASSIUM 5.3 mmol/L (3.5-5.1)
[2017-02-16] MEDS: PROTONIX PO SCH (06:04)
[2017-02-16 07:56] VITALS: BP 105/72
--- NOTE | 2017-02-16 08:24 | DISCHARGE SUMMARY ---
ADMISSION DATE: 02/12/2017 DISCHARGE DATE: 02/16/2017 SUBJECTIVE: Mr. Rivera feels better. No chest pain. Stronger. He would like to go home today. PHYSICAL EXAMINATION: Vital signs: Temp 98.0 degrees. He remained afebrile. Pulse 70, respirations 16, blood pressure 107/66. Lungs: Clear in all lung mayer. Cardiovascular: Regular rhythm and rate without murmur or S3. Abdomen: Soft. Skin: Warm dry. Intake and output: Urine output 2400 mL. LAB: Reviewed from November 13. Chemistries today: Sodium 136, potassium 5.3, chloride 96, bicarb 28, BUN 46, creatinine 3.4. HOSPITAL SUMMARY: Patient of Dr. Iman Durán. He also sees Dr. 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 Presented with chest pain. He had an 82-year-old who presented with chest pain. No acute distress. He has a medical history of sick sinus syndrome, atrial fib now with permanent pacemaker. He is on Eliquis therapy. He has valvular dysfunction requiring valve replacement. 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 Around 1 o'clock a.m. he was awoke by severe chest pain, substernal, radiating down to his left elbow. He had nausea with it but no sweating. He did have mild dizziness. He states the pain lasted long enough that he requested his son to bring him to the ER. Currently he is chest pain-free. He did receive some clonidine, Lasix, morphine, aspirin, nitroglycerin, and GI cocktail. About 2 days a week he has chest pain when he starts lay down to go to bed. He was admitted. He had a non-Q-wave myocardial infarction based on his cardiac enzymes. Cardiology was involved. He has a history of some pulmonary hypertension. I think his pulmonary pressures around 70. He had some high blood pressure, so hypertensive urgency. Mild aortic stenosis, moderate tricuspid regurgitation. The patient was treated conservatively and did fairly well. He had a heart catheterization on 02/13/2017. They found mild degree of aortic stenosis. Mean gradient was 14 mmHg, low cardiac output. Cardiac output was 2.56 with an index of 1.5. Severe 3 vessel disease. Severe stenosis of the major diagonal branch of the LAD. Mild decrease in ejection fraction. Normal LVEDP, low wedge. The patient had no further pain, was feeling better, and wanted go home on 02/16/2017. DISCHARGE MEDICATIONS: We will continue him on his Xanax 0.25 mg q.8 hours p.r.n., aspirin 81 mg a day, Lipitor 40 mg at bedtime, Catapres 0.1 mg b.i.d. Will see if they want to switch him to a long nitroglycerin patch and Restoril 15 mg at bedtime. cc: Sedrick Franco MD
[2017-02-16] MEDS: ASPIRIN EC PO SCH (08:44)
[2017-02-16] MEDS: CATAPRES PO SCH (08:44)
[2017-02-16] MEDS: MUCOMYST 20% PO SCH (08:44)
[2017-02-16] MEDS ORDERED: NITROGLYCERIN 0.4 MG/HR PATCH TD SCH (09:00)
--- NOTE | 2017-02-16 14:43 | PROGRESS NOTE ---
DATE: 02/16/2017 SUBJECTIVE: Mr. Rivera is resting quietly in bed. He denies chest pain or increased work of breathing. States that he is feeling well. He is lying semi-prone. He remains on room air. VITAL SIGNS: His most recent vital signs are a temperature 98 degrees, blood pressure 107/66, heart rate 70, respirations 16. He is on room air. Last recorded saturation 97 %. He has had 960 in, 1550 out per Parra catheter. LABORATORIES: Sodium 136, potassium 5.3, chloride 96, CO2 28, BUN 46, creatinine 3.4, glucose 101, anion gap 12, calcium 8.6, phosphorus 4.3, albumin 3.2. Previous hemoglobin 14 on February 13. PHYSICAL EXAMINATION: General: This is an 82-year-old, white male. He is currently resting in bed. He is in no acute distress. Skin: Warm and dry. HEENT: Normocephalic, atraumatic. Conjunctivae pink. He has JOSÉ MANUEL. Mucous membranes moist. Neck: Supple. Trachea midline. No JVD. Cardiovascular: Regular rate and rhythm. He has a soft systolic murmur. Lungs: Clear to auscultation anteriorly. Equal excursion on room air. Abdomen: Soft, nontender. Positive bowel sounds. Extremities: No edema, no clubbing, or cyanosis. Genitourinary: Not inspected. Parra catheter is in place, with adequate urine out. Neurological: Alert and oriented times person and place. ASSESSMENT AND PLAN: 1. Acute kidney [id number] kidney disease. The patient's serum creatinine remains at 3.4 to 3.8. This continues to place him in a stage 3B-4, with approximate estimated GFR of 20%. There is no indication for further intervention. 2. Electrolytes and acid-base balance. These are stable. 3. Anemia. This is in target. 4. Non ST-elevation with mild cardial infarction, second status post left heart catheterization. The patient's creatinine remains stable. We will plan to follow up on an outpatient basis within 2 to 3 weeks of his discharge. The patient is in agreement to following in our care. No indications for further intervention. I do thank you for allowing us to follow with this patient. Dictated by BOBY Stoner for Cody Mcfadden MD Patient seen, data reviewed, discussed with Keya Adame on 02/16/17. I agree with the above assessment and plan of care. cc: BOBY Stoner MD MTDD
== END 2017-02-16 09:45 | disposition home or self-care (01) ==
LOC: ED 06:17 → 3N 12:22 → SUATTDRO 12:22 → 3S 02-13 12:39
PROVIDERS: ATTEND Emergency Medicine